=== PATIENT | male | born 1950 | race Native Hawaiian/Other Pacific Islander ===

== ENCOUNTER 2024-11-05 19:59 | Emergency (ER) | payer MEDICARE, MEDICAID, SELFPAY ==
[2024-11-05 20:00] VITALS: BMI 25.0
[2024-11-05 20:23] VITALS: BP 130/60; PULSE 92; RESP 16; TEMP 37.2; O2SAT 95
--- NOTE | 2024-11-05 20:29 | XR_ITS ---
Examination: CT abdomen and pelvis without contrast. Coronal 3-D reconstructions. Sagittal 2-D reconstructions. Date and time of exam:November 05, 20242050 hours Comparison April 02, 2024 INDICATIONS: Onset of pelvic and left hip pain today, history kidney stones CTDI: vol (mGy): 6.15 DLP: (mGycm): 304 Technique: Axial images of the abdomen have been obtained, 3 mm slice thickness Intravenous contrast material has not been administered. Low dose protocols were performed. One or more of the following dose reduction techniques were used; automated exposure control, adjustment of the mA and/or KV according to patient size, use of iterative reconstruction technique. Findings: No focal liver or splenic lesions Absent gallbladder No pancreatic mass Tiny 1 mm right renal calculi Minimal nodular thickening left adrenal gland Lower pole left renal calculi, the largest 8 mm no hydronephrosis or ureteral calculi Aorta normal size No pericecal inflammatory change No bowel obstruction No diverticulitis Transverse posterior dimension 5.3 cm Contracted urinary bladder Fat-containing left inguinal hernia IMPRESSION: Nonobstructing bilateral renal calculi No CT findings of appendicitis bowel obstruction or diverticulitis
--- NOTE | 2024-11-05 20:29 | XR_ITS ---
Examination: CT pelvis without intravenous contrast. 2-D sagittal and coronal reconstructions. Date and time of exam:November 05, 2024 at 2053 hours INDICATIONS: Onset pelvic and left hip pain today CTDI: vol (mGy) :5.30 DLP: (mGycm) : 167 Technique: Multiple 3 mm axial sections of the pelvis have been obtained with the 64 slice high resolution scanner. 2-D sagittal and coronal reconstructions. Low dose protocols were performed. One or more of the following dose reduction techniques were used; automated exposure control, adjustment of the mA and/or KV according to patient size, use of iterative reconstruction technique. Findings: Partial visualization left renal calculi No ureteral calculi Contractured urinary bladder Transverse posterior dimension 4.8 cm Iliac bones acetabular regions anterior rami intact No hip fractures Moderate narrowing hip joints IMPRESSION: No hip or pelvic fracture Moderate bilateral hip osteoarthritis
[2024-11-05 21:13] LABS: Basophils # (Auto) 0.1 Thou/mm3 (0.0-0.2); Basophils % (Auto) 0 % (0-2.5); Eosinophils # (Auto) 0.1 Thou/mm3 (0.0-0.5); Eosinophils % (Auto) 1 % (0-10); Hematocrit 37.9 % (41.0-53.0); Hemoglobin 13.2 g/dL (13.5-16.0); Immature Granulocytes % (Auto) 0 % (0-0); Immature Granulocytes Auto 0.04 Thou/mm3 (0.00-0.00); Lymphocytes # (Auto) 1.3 Thou/mm3 (1.0-4.8); Lymphocytes % (Auto) 11 % (10-50); Mean Corpuscular HGB Conc 34.8 g/dl (31.0-37.0); Mean Corpuscular Hemoglobin 31.6 pg (25.0-35.0); Mean Corpuscular Volume 91 fL (80-100); Monocytes % (Auto) 8 % (0-12); Neutrophils % (Auto) 80 % (37-80); Nucleated Red Blood Cell % 0 /100 WBC (0); Platelet Count 210 Thou/mm3 (140-440); RDW Standard Deviation 43.7 fL (35.1-43.9); Red Blood Count 4.18 Miln/mm3 (4.50-5.90); White Blood Count 12.5 Thou/mm3 (3.8-10.6)
[2024-11-05 21:30] LABS: Alanine Aminotransferase 16 U/L (10-49); Albumin, Serum 4.6 gm/dL (3.4-4.8); Albumin/Globulin Ratio 1.7 (1.2-2.2); Alkaline Phosphatase 50 U/L (46-116); Anion Gap 7 (7-16); Aspartate Amino Transferase 19 U/L (0-34); BUN/Creatinine Ratio 19 Ratio (12-20); Bilirubin,Total 0.6 mg/dL (0.3-1.2); Blood Urea Nitrogen 15 mg/dL (9-23); Calcium 9.1 mg/dL (8.3-10.6); Calcium (Corrected) 9.1 mg/dL (8.5-10.1); Carbon Dioxide 26.2 mMol/L (20.0-31.0); Chloride 102 mMol/L (98-107); Creatinine (Component) 0.8 mg/dL (0.6-1.3); Estimated Creatinine Clearance 53.8 mL/min (>60); Globulin 2.7 gm/dL (2.3-3.5); Glucose 144 mg/dL (74-106); Osmolality,Calculated 273 (275-295); Potassium 3.8 mMol/L (3.4-5.1); Sodium 135 mMol/L (136-145); Total Protein 7.3 gm/dL (5.7-8.2); eGFR > 60 See Note
[2024-11-05 21:50] LABS: Collection Type, Urine Clean Catch; Squamous Epithelial Cell,Urine 0 /hpf (0-5)
[2024-11-05 21:53] LABS: Bilirubin,Urine Negative (Negative); Blood,Urine 1+ (Negative); Clarity,Urine Clear (Clear/Hazy); Color,Urine Yellow (Lt Yel-Yel); Glucose, Urine Trace (Negative); Ketones,Urine Negative (Negative); Leukocyte Esterase,Urine Negative (Negative); Nitrite,Urine Negative (Negative); Protein,Urine Negative (Neg - Trace); RBC,Urine 4 /hpf (0-3); Specific Gravity,Urine 1.023 (1.001-1.035); Urobilinogen,Urine Negative mg/dL (0.0-1.0); WBC,Urine 1 /hpf (0-5)
[2024-11-05] MEDS: DIAZEPAM 5 MG TABLET PO (21:57)
[2024-11-05] MEDS: MORPHINE SULF INJ 10 MG/ML VIAL 5 MG IM (23:21)
--- NOTE | 2024-11-06 00:21 | PD.EDADULT ---
ED General RME/HPI General Chief complaint: Back Pain/Injury Stated complaint: LEFT SIDE BACK PAIN Time Seen by Provider: 11/05/24 20:08 Arrival date/time: 11/05/24 19:59 74-year-old male with a history of renal calculi presents to the ED with a complaint of left flank pain as well as left hip pain radiating to his thigh. He denies any abdominal pain extending down into his scrotum. The pain of his left hip is worsened with sitting and is more comfortable standing. He denies any recent injury, lifting, or a fall. He denies any loss of bladder or bowel control. Mode of arrival: ambulatory Limitations: no limitations Related Data Home Medications ?Medication ?Instructions ?Recorded ?Confirmed alprazolam 2 mg tablet (Xanax) 1 mg PO BID #0 tabs 06/05/14 lisinopril 10 mg tablet (Prinivil) 10 mg PO QDAY #0 tabs 06/05/14 tamsulosin 0.4 mg capsule (Flomax) 0.4 mg PO QDAY ##0 06/05/14 methimazole 5 mg tablet (Tapazole) 5 mg PO BID #0 tabs 12/31/15 ranitidine HCl 150 mg tablet 150 mg PO BID #0 tabs 12/31/15 (Zantac) Amitriptyline Hcl * (ELAVIL *) 25 mg PO HS #0 tabs 06/14/17 Aspirin Ec * (ECOTRIN *) 81 mg PO QDAY ##0 06/14/17 acetaminophen 500 mg tablet 500 mg PO PRN PRN PAIN ##0 06/14/17 cilostazol 50 mg tablet 50 mg PO BID #0 tabs 06/14/17 cyanocobalamin (vitamin B-12) 1,000 mcg PO QDAY #0 tabs 06/14/17 1,000 mcg tablet (Vitamin B-12) docusate sodium 100 mg capsule 100 mg PO TID ##0 06/14/17 (Doc-Q-Lace) metformin 500 mg tablet 500 mg PO QDAY #0 tabs 06/14/17 (Glucophage) paroxetine HCl 20 mg tablet (Paxil) 20 mg PO QAM #0 tabs 06/14/17 nitroglycerin 0.4 mg sublingual 0.4 mg SL PRN PRN CHEST TIGHTNESS 06/21/17 tablet (Nitrostat) #0 tabs Previous Rx's ?Medication ?Instructions ?Recorded Hydrocodone/Acetaminophen * (NORCO 1 tab PO Q6H PRN PAIN #30 tabs 06/22/17 5/325 *) cephalexin 500 mg capsule (Keflex) 500 mg PO QID #40 caps 12/25/19 hydrocodone bitartrate 10 mg 10 mg PO Q12H #10 ea 12/25/19 capsule, oral only, extended rel 12 hr lidocaine 5 % topical patch 1 patch topical Q24H #6 ea 10/16/22 lidocaine 5 % topical patch 1 patch topical QDAY #6 ea 10/16/22 methocarbamol 500 mg tablet 500 mg PO Q6H PRN muscle pain #20 10/16/22 tabs methocarbamol 500 mg tablet 500 mg PO Q6H PRN muscle pain #20 10/16/22 tabs tramadol 50 mg tablet 50 mg PO Q6H PRN pain #15 tabs 10/16/22 ibuprofen 600 mg tablet 600 mg PO Q8H PRN pain #14 tabs 04/02/24 diazepam 5 mg tablet 5 mg PO BID PRN muscle spasm #6 11/06/24 tabs diazepam 5 mg tablet (Valium) 5 mg PO BID PRN muscle spasm #6 11/06/24 tabs diazepam 5 mg tablet (Valium) 5 mg PO BID PRN muscle spasm #6 11/06/24 tabs oxycodone 5 mg tablet 5 mg PO Q8H PRN pain #10 tabs 11/06/24 oxycodone 5 mg tablet 5 mg PO Q8H PRN pain #10 tabs 11/06/24 oxycodone 5 mg tablet 5 mg PO Q8H PRN pain #10 tabs 11/06/24 cyclobenzaprine 5 mg tablet 5 mg PO TID PRN muscle spasm #30 11/07/24 tabs tramadol 50 mg tablet 50 mg PO BID PRN pain #6 tabs 11/07/24 dexamethasone 6 mg tablet 6 mg PO QDAY #7 tabs 11/08/24 meloxicam 7.5 mg tablet 7.5 mg PO BID #14 tabs 11/08/24 tamsulosin 0.4 mg capsule (Flomax) 0.4 mg PO QDAY #20 caps 11/08/24 Allergies Allergy/AdvReac Type Severity Reaction Status Date / Time acetaminophen Allergy Unknown Verified 11/08/24 11:47 propoxyphene Allergy Unknown Verified 11/08/24 11:47 Review of Systems Review of Systems Systems Reviewed: All systems reviewed, normal except as documented Past Medical History Past Medical History CARDIAC: Positive Hypertension; Negative Congestive Heart Failure RESPIRATORY: Negative Chronic Obstructive Pulmonary Disease (COPD) GENITOURINARY: Negative Renal Disease ENDOCRINE: Positive Hypothyroidism; Negative Diabetes Mellitus Type 1 or Diabetes Mellitus Type 2 PSYCHO/SOCIAL: Positive Anxiety Social History SMOKING STATUS: Never smoker ED Exam Narrative Physical exam: 74-year-old male, mild to moderate acute distress, unable to sit on the exam table however sits on the chair with his right buttocks only, extending his left leg. He has no tenderness to the cervical thoracic or lumbar spine. No CVA tenderness. No abdominal tenderness. He has tenderness to the left lateral hip area extending down into the thigh. He has positive straight leg raise on the left. DTRs are intact. General Limitations: Present no limitations Course Course Course Narrative: Patient was given morphine 5 mg IM as well as Valium 5 mg p.o. Vital signs blood pressure 130/60, pulse 92, respirations 16 nonlabored, temp 99.0, O2 sat 95% on room air. CBC reveals an elevated white count of 12.5, minimally low H&H of 13.2/37.9, normal platelets. CMP reveals minimally low sodium of 135, normal potassium, chloride, CO2, gap, BUN and creatinine. Glucose is elevated at 144. Calcium is normal as well as LFTs. Urinalysis reveals 1+ blood, negative nitrites, negative leukocyte esterase, 4 RBCs, 1 WBC and no bacteria. CT of the abdomen pelvis without contrast reveals: Nonobstructing bilateral renal calculi. No CT findings of appendicitis bowel obstruction or diverticulitis. CT of the left hip without contrast reveals: No hip or pelvic fracture. Moderate bilateral hip osteoarthritis. Patient was discharged home in stable and improved condition. He was encouraged to return to the ED for any new or worsening symptoms. Quality Measures none Orders Category Date Time Status CT abdomen pelvis wo con Stat Exams 11/05/24 20:[address] hip LT wo con Stat Exams 11/05/24 20:29 Completed CBC Stat Lab 11/05/24 20:51 Completed CMP [Comprehensive Metabolic Panel] Stat Lab 11/05/24 20:51 Completed Urinalysis Stat Lab 11/05/24 21:34 Completed Diazepam [Valium] Med 11/05/24 20:34 Discontinued 5 mg PO X1 ONE Morphine Inj Med 11/05/24 20:34 Discontinued 5 mg IM X1 ONE Vital Signs Vital signs: Vital Signs Temperature 99.0 F 11/05/24 20:23 Pulse Rate 92 11/05/24 20:23 Respiratory Rate 16 11/05/24 20:23 Blood Pressure 130/60 11/05/24 20:23 Pulse Oximetry (%) 95 11/05/24 20:23 Oxygen Delivery Method Room Air 11/05/24 20:23 Discharge Plan Plan Patient Disposition: HOME (Self Care) Discharge Disposition comment: Stable and improved Prescriptions/Referrals Prescriptions/Med Rec: New oxycodone 5 mg tablet 5 mg PO Q8H MDD 15 mg/day PRN (Reason: pain) Qty: 10 0RF diazepam 5 mg tablet 5 mg PO BID PRN (Reason: muscle spasm) Qty: 6 0RF oxycodone 5 mg tablet 5 mg PO Q8H MDD 15mg/day PRN (Reason: pain) Qty: 10 0RF diazepam [Valium] 5 mg tablet 5 mg PO BID PRN (Reason: muscle spasm) Qty: 6 0RF oxycodone 5 mg tablet 5 mg PO Q8H MDD 15mg/day PRN (Reason: pain) Qty: 10 0RF diazepam [Valium] 5 mg tablet 5 mg PO BID PRN (Reason: muscle spasm) Qty: 6 0RF tramadol 50 mg tablet 50 mg PO BID PRN (Reason: pain) Qty: 6 0RF cyclobenzaprine 5 mg tablet 5 mg PO TID PRN (Reason: muscle spasm) Qty: 30 0RF No Action tamsulosin [Flomax] 0.4 MG capsule,extended release 24hr 0.4 mg PO QDAY Qty: 0 lisinopril [Prinivil] 10 MG tablet 10 mg PO QDAY Qty: 0 alprazolam [Xanax] 2 MG tablet 1 mg PO BID Qty: 0 Patient Comments: TAKE 1/2 - 1 TAB methimazole [Tapazole] 5 MG tablet 5 mg PO BID Qty: 0 ranitidine HCl [Zantac] 150 MG tablet 150 mg PO BID Qty: 0 metformin [Glucophage] 500 MG tablet 500 mg PO QDAY Qty: 0 Amitriptyline Hcl * (ELAVIL *) 25 MG tablet 25 mg PO HS Qty: 0 Aspirin Ec * (ECOTRIN *) 81 MG TABLET.DR 81 mg PO QDAY Qty: 0 cilostazol 50 MG tablet 50 mg PO BID Qty: 0 cyanocobalamin (vitamin B-12) [Vitamin B-12] 1,000 MCG tablet 1,000 mcg PO QDAY Qty: 0 acetaminophen 500 MG tablet 500 mg PO PRN PRN (Reason: PAIN) Qty: 0 paroxetine HCl [Paxil] 20 MG tablet 20 mg PO QAM Qty: 0 docusate sodium [Doc-Q-Lace] 100 MG capsule 100 mg PO TID Qty: 0 nitroglycerin [Nitrostat] 0.4 MG tablet, sublingual 0.4 mg SL PRN PRN (Reason: CHEST TIGHTNESS) Qty: 0 Hydrocodone/Acetaminophen * (NORCO 5/325 *) 1 TAB tablet 1 tab PO Q6H PRN (Reason: PAIN) Qty: 30 0RF cephalexin [Keflex] 500 mg capsule 500 mg PO QID Qty: 40 0RF hydrocodone bitartrate 10 mg capsule, oral only, ER 12hr 10 mg PO Q12H MDD 2 Qty: 10 0RF tamsulosin [Flomax] 0.4 mg capsule 0.4 mg PO QDAY Qty: 20 0RF meloxicam 7.5 mg tablet 7.5 mg PO BID Qty: 14 0RF dexamethasone 6 mg tablet 6 mg PO QDAY Qty: 7 0RF methocarbamol 500 mg tablet 500 mg PO Q6H PRN (Reason: muscle pain) Qty: 20 0RF lidocaine 5 % adhesive patch,medicated 1 patch topical QDAY Qty: 6 0RF Rx Instructions: leave on most painful area for up to 12 hrs tramadol 50 mg tablet 50 mg PO Q6H PRN (Reason: pain) Qty: 15 0RF methocarbamol 500 mg tablet 500 mg PO Q6H PRN (Reason: muscle pain) Qty: 20 0RF lidocaine 5 % adhesive patch,medicated 1 patch topical Q24H Qty: 6 0RF Rx Instructions: leave on most painful area for up to 12 hrs ibuprofen 600 mg tablet 600 mg PO Q8H PRN (Reason: pain) Qty: 14 0RF Referrals: No Primary/Family,Physician [Primary Care Provider] - In 1 week Problem List Clinical Impression: Renal colic, Sciatica Patient/Caregiver Discharge Instructions Education Materials: ED Sciatica, ED Kidney Stone w/ Colic Additional Instructions: Follow-up with your primary care physician in 24 to 48 hours. You would likely benefit from physical therapy for your hip. Return to the ED for any new or worsening symptoms. Print Language: Slovak Stand Alone Forms: Marilee Award Info., Patient Portal Info Letter PA/RIVETER Supervising Physician PA/RIVETER Supervising Physician: Dr Pennington MDM Narrative MDM hospital course (for use when minimal MDM required): 74-year-old male with a history of renal calculi presents to the ED with a complaint of left flank pain as well as left hip pain radiating to his thigh. He denies any abdominal pain extending down into his scrotum. The pain of his left hip is worsened with sitting and is more comfortable standing. He denies any recent injury, lifting, or a fall. He denies any loss of bladder or bowel control. 74-year-old male, mild to moderate acute distress, unable to sit on the exam table however sits on the chair with his right buttocks only, extending his left leg. He has no tenderness to the cervical thoracic or lumbar spine. No CVA tenderness. No abdominal tenderness. He has tenderness to the left lateral hip area extending down into the thigh. He has positive straight leg raise on the left. DTRs are intact. Patient was given morphine 5 mg IM as well as Valium 5 mg p.o. Vital signs blood pressure 130/60, pulse 92, respirations 16 nonlabored, temp 99.0, O2 sat 95% on room air. CBC reveals an elevated white count of 12.5, minimally low H&H of 13.2/37.9, normal platelets. CMP reveals minimally low sodium of 135, normal potassium, chloride, CO2, gap, BUN and creatinine. Glucose is elevated at 144. Calcium is normal as well as LFTs. Urinalysis reveals 1+ blood, negative nitrites, negative leukocyte esterase, 4 RBCs, 1 WBC and no bacteria. CT of the abdomen pelvis without contrast reveals: Nonobstructing bilateral renal calculi. No CT findings of appendicitis bowel obstruction or diverticulitis. CT of the left hip without contrast reveals: No hip or pelvic fracture. Moderate bilateral hip osteoarthritis. Patient was discharged home in stable and improved condition. He was encouraged to return to the ED for any new or worsening symptoms. Clinical Information Provided by: patient Medical Records reviewed [facility] Meds/Rx considered, not ordered None Labs/Rad/Tests considered, not ordered None Chronic Illness/Social Conditions which may negatively complicate care or outcome(s)-explain: other (Hypertension, renal calculi with colic) EKG EKG not done Labs Labs: Interpreted by or Lab(s) Interpretation(s): As noted above Imaging Imaging interpretation: none or see narrative above Imaging Interpretation(s): As noted above Medication Administration(s) Medication Administration History Discontinued Medications Diazepam (Diazepam 5 Mg Tablet) 5 mg PO X1 ONE Stop: 11/05/24 20:35 Last Admin: 11/05/24 21:57 Dose: 5 mg Documented By: MIHAI Morphine Sulfate (Morphine Sulf Inj 10 Mg/Ml Vial) 5 mg IM X1 ONE Stop: 11/05/24 20:35 Last Admin: 11/05/24 23:21 Dose: 5 mg Documented By: MIHAI As noted above Diagnosis Differential Diagnosis ED Complaint MDM: Renal calculi, UTI, pyelonephritis, sciatica, hip osteoarthritis
== END 2024-11-06 00:47 | disposition home or self-care (01) ==
PROVIDERS: Physician Assistant; Emergency Provider Emergency Medicine
DX: N20.0 Calculus of kidney (principal); M16.0 Bilateral primary osteoarthritis of hip
CPT/HCPCS: 36415; 73700; 74176; 80053; 81001; 85025; 96372; 99284; J2270; A9270

== ENCOUNTER 2024-11-08 11:43 | Emergency (ER) | payer MEDICARE, MEDICAID, SELFPAY ==
[2024-11-08 11:44] VITALS: BMI 25.0
[2024-11-08 12:23] VITALS: BP 154/61; PULSE 75; RESP 18; TEMP 37.3; O2SAT 97
--- NOTE | 2024-11-08 12:33 | PD.EDBACK ---
ED Back Injury Pain RME/HPI General Chief Complaint: Back Pain/Injury Stated Complaint: BACK PAIN SINCE YEST, SEEN AND MEDS NOT WORKING Time Seen by Provider: 11/08/24 12:22 Source: patient Arrival date/time: 11/08/24 11:43 74-year-old male with no known medical history presents to the emergency room with a chief complaint of pain and tenderness to his left flank x 2 days. Mode of arrival: ambulatory Limitations: no limitations Related Data Home Medications ?Medication ?Instructions ?Recorded ?Confirmed alprazolam 2 mg tablet (Xanax) 1 mg PO BID #0 tabs 06/05/14 lisinopril 10 mg tablet (Prinivil) 10 mg PO QDAY #0 tabs 06/05/14 tamsulosin 0.4 mg capsule (Flomax) 0.4 mg PO QDAY ##0 06/05/14 methimazole 5 mg tablet (Tapazole) 5 mg PO BID #0 tabs 12/31/15 ranitidine HCl 150 mg tablet 150 mg PO BID #0 tabs 12/31/15 (Zantac) Amitriptyline Hcl * (ELAVIL *) 25 mg PO HS #0 tabs 06/14/17 Aspirin Ec * (ECOTRIN *) 81 mg PO QDAY ##0 06/14/17 acetaminophen 500 mg tablet 500 mg PO PRN PRN PAIN ##0 06/14/17 cilostazol 50 mg tablet 50 mg PO BID #0 tabs 06/14/17 cyanocobalamin (vitamin B-12) 1,000 mcg PO QDAY #0 tabs 06/14/17 1,000 mcg tablet (Vitamin B-12) docusate sodium 100 mg capsule 100 mg PO TID ##0 06/14/17 (Doc-Q-Lace) metformin 500 mg tablet 500 mg PO QDAY #0 tabs 06/14/17 (Glucophage) paroxetine HCl 20 mg tablet (Paxil) 20 mg PO QAM #0 tabs 06/14/17 nitroglycerin 0.4 mg sublingual 0.4 mg SL PRN PRN CHEST TIGHTNESS 06/21/17 tablet (Nitrostat) #0 tabs Previous Rx's ?Medication ?Instructions ?Recorded Hydrocodone/Acetaminophen * (NORCO 1 tab PO Q6H PRN PAIN #30 tabs 06/22/17 5/325 *) cephalexin 500 mg capsule (Keflex) 500 mg PO QID #40 caps 12/25/19 hydrocodone bitartrate 10 mg 10 mg PO Q12H #10 ea 12/25/19 capsule, oral only, extended rel 12 hr lidocaine 5 % topical patch 1 patch topical Q24H #6 ea 10/16/22 lidocaine 5 % topical patch 1 patch topical QDAY #6 ea 10/16/22 methocarbamol 500 mg tablet 500 mg PO Q6H PRN muscle pain #20 10/16/22 tabs methocarbamol 500 mg tablet 500 mg PO Q6H PRN muscle pain #20 10/16/22 tabs tramadol 50 mg tablet 50 mg PO Q6H PRN pain #15 tabs 10/16/22 ibuprofen 600 mg tablet 600 mg PO Q8H PRN pain #14 tabs 04/02/24 diazepam 5 mg tablet 5 mg PO BID PRN muscle spasm #6 11/06/24 tabs diazepam 5 mg tablet (Valium) 5 mg PO BID PRN muscle spasm #6 11/06/24 tabs diazepam 5 mg tablet (Valium) 5 mg PO BID PRN muscle spasm #6 11/06/24 tabs oxycodone 5 mg tablet 5 mg PO Q8H PRN pain #10 tabs 11/06/24 oxycodone 5 mg tablet 5 mg PO Q8H PRN pain #10 tabs 11/06/24 oxycodone 5 mg tablet 5 mg PO Q8H PRN pain #10 tabs 11/06/24 cyclobenzaprine 5 mg tablet 5 mg PO TID PRN muscle spasm #30 11/07/24 tabs tramadol 50 mg tablet 50 mg PO BID PRN pain #6 tabs 11/07/24 meloxicam 7.5 mg tablet 7.5 mg PO BID #14 tabs 11/08/24 tamsulosin 0.4 mg capsule (Flomax) 0.4 mg PO QDAY #20 caps 11/08/24 Allergies Allergy/AdvReac Type Severity Reaction Status Date / Time acetaminophen Allergy Unknown Verified 11/08/24 11:47 propoxyphene Allergy Unknown Verified 11/08/24 11:47 ED Exam General Limitations: Present no limitations Course Orders Category Date Time Status Ketorolac Inj [Toradol Inj] Med 11/08/24 12:29 Discontinued 30 mg IM X1 ONE Vital Signs Vital signs: Vital Signs Temperature 99.2 F 11/08/24 12:23 Pulse Rate 75 11/08/24 12:23 Respiratory Rate 18 11/08/24 12:23 Blood Pressure 154/61 H 11/08/24 12:23 Pulse Oximetry (%) 97 11/08/24 12:23 Oxygen Delivery Method Room Air 11/08/24 12:23 Back Pain / Injury Medications / Prescriptions Medication administrations:: Medication Administration History Discontinued Medications Ketorolac Tromethamine (Ketorolac Inj 60 Mg/2 Ml Vial) 30 mg IM X1 ONE Stop: 11/08/24 12:30 Discharge Plan Plan Patient Disposition: HOME (Self Care) Discharge Disposition comment: Stable Prescriptions/Referrals Prescriptions/Med Rec: New tamsulosin [Flomax] 0.4 mg capsule 0.4 mg PO QDAY Qty: 20 0RF meloxicam 7.5 mg tablet 7.5 mg PO BID Qty: 14 0RF No Action tamsulosin [Flomax] 0.4 MG capsule,extended release 24hr 0.4 mg PO QDAY Qty: 0 lisinopril [Prinivil] 10 MG tablet 10 mg PO QDAY Qty: 0 alprazolam [Xanax] 2 MG tablet 1 mg PO BID Qty: 0 Patient Comments: TAKE 1/2 - 1 TAB methimazole [Tapazole] 5 MG tablet 5 mg PO BID Qty: 0 ranitidine HCl [Zantac] 150 MG tablet 150 mg PO BID Qty: 0 metformin [Glucophage] 500 MG tablet 500 mg PO QDAY Qty: 0 Amitriptyline Hcl * (ELAVIL *) 25 MG tablet 25 mg PO HS Qty: 0 Aspirin Ec * (ECOTRIN *) 81 MG TABLET.DR 81 mg PO QDAY Qty: 0 cilostazol 50 MG tablet 50 mg PO BID Qty: 0 cyanocobalamin (vitamin B-12) [Vitamin B-12] 1,000 MCG tablet 1,000 mcg PO QDAY Qty: 0 acetaminophen 500 MG tablet 500 mg PO PRN PRN (Reason: PAIN) Qty: 0 paroxetine HCl [Paxil] 20 MG tablet 20 mg PO QAM Qty: 0 docusate sodium [Doc-Q-Lace] 100 MG capsule 100 mg PO TID Qty: 0 nitroglycerin [Nitrostat] 0.4 MG tablet, sublingual 0.4 mg SL PRN PRN (Reason: CHEST TIGHTNESS) Qty: 0 Hydrocodone/Acetaminophen * (NORCO 5/325 *) 1 TAB tablet 1 tab PO Q6H PRN (Reason: PAIN) Qty: 30 0RF cephalexin [Keflex] 500 mg capsule 500 mg PO QID Qty: 40 0RF hydrocodone bitartrate 10 mg capsule, oral only, ER 12hr 10 mg PO Q12H MDD 2 Qty: 10 0RF methocarbamol 500 mg tablet 500 mg PO Q6H PRN (Reason: muscle pain) Qty: 20 0RF lidocaine 5 % adhesive patch,medicated 1 patch topical QDAY Qty: 6 0RF Rx Instructions: leave on most painful area for up to 12 hrs tramadol 50 mg tablet 50 mg PO Q6H PRN (Reason: pain) Qty: 15 0RF methocarbamol 500 mg tablet 500 mg PO Q6H PRN (Reason: muscle pain) Qty: 20 0RF lidocaine 5 % adhesive patch,medicated 1 patch topical Q24H Qty: 6 0RF Rx Instructions: leave on most painful area for up to 12 hrs ibuprofen 600 mg tablet 600 mg PO Q8H PRN (Reason: pain) Qty: 14 0RF oxycodone 5 mg tablet 5 mg PO Q8H MDD 15 mg/day PRN (Reason: pain) Qty: 10 0RF diazepam 5 mg tablet 5 mg PO BID PRN (Reason: muscle spasm) Qty: 6 0RF oxycodone 5 mg tablet 5 mg PO Q8H MDD 15mg/day PRN (Reason: pain) Qty: 10 0RF diazepam [Valium] 5 mg tablet 5 mg PO BID PRN (Reason: muscle spasm) Qty: 6 0RF oxycodone 5 mg tablet 5 mg PO Q8H MDD 15mg/day PRN (Reason: pain) Qty: 10 0RF diazepam [Valium] 5 mg tablet 5 mg PO BID PRN (Reason: muscle spasm) Qty: 6 0RF tramadol 50 mg tablet 50 mg PO BID PRN (Reason: pain) Qty: 6 0RF cyclobenzaprine 5 mg tablet 5 mg PO TID PRN (Reason: muscle spasm) Qty: 30 0RF Problem List Clinical Impression: Renal colic Patient/Caregiver Discharge Instructions Print Language: Croatian Stand Alone Forms: Marilee Award Info., Patient Portal Info Letter
[2024-11-08] MEDS: KETOROLAC INJ 60 MG/2 ML VIAL 30 MG IM (12:45)
--- NOTE | 2024-11-08 12:48 | PD.EDRME ---
Rapid Medical Screening Exam [facility] Arrival date/time: 11/08/24 11:43 74-year-old male with no known medical history presents to the emergency room with a chief complaint of pain and tenderness to his left flank x 2 days. I have greeted and performed a focused initial assessment of this patient. A comprehensive ED assessment and evaluation of the patient, analysis of all test results, and completion of the medical decision making process will be conducted by additional ED providers. Chief Complaint: Back Pain/Injury Time Seen by Provider: 11/08/24 12:22 Vital signs: Vital Signs Temperature 99.2 F 11/08/24 12:23 Pulse Rate 75 11/08/24 12:23 Respiratory Rate 18 11/08/24 12:23 Blood Pressure 154/61 H 11/08/24 12:23 Pulse Oximetry (%) 97 11/08/24 12:23 Oxygen Delivery Method Room Air 11/08/24 12:23 Vital signs reviewed by provider: Yes
--- NOTE | 2024-11-08 12:55 | XR_ITS ---
Examination: CT lumbar spine, without contrast. 2-D sagittal reconstructions. 2-D coronal reconstructions. 3-D reconstructions. Date and time of exam:November 08, 2024 1327 hours INDICATIONS: New onset lower back pain beginning 2 days ago CTDI: vol (mGy):17.7 DLP: (mGycm):463 Technique: Multiple 1.25 mm axial sections of the lumbar spine without intravenous contrast have been obtained. 2-D sagittal and coronal reconstructions have been obtained. 3-D reconstructions have been obtained. Low dose protocols were performed. One or more of the following dose reduction techniques were used; automated exposure control, adjustment of the mA and/or KV according to patient size, use of iterative reconstruction technique. Findings: Prominent osteopenia Grade 1 anterolisthesis L4 on L5 No lumbar fracture Lumbar pedicles laminated transverse and posterior spinous processes intact L5-S1 3 mm central lumbar disc bulge L4-L5 5 mm central lumbar disc bulge More cephalad levels unremarkable IMPRESSION: No lumbar fracture L5-S1 3 mm central lumbar disc bulge L4-L5 5 mm central lumbar disc bulge
--- NOTE | 2024-11-08 12:56 | PD.EDBACK ---
ED Back Injury Pain RME/HPI General Chief Complaint: Back Pain/Injury Stated Complaint: BACK PAIN SINCE YEST, SEEN AND MEDS NOT WORKING Time Seen by Provider: 11/08/24 12:22 Arrival date/time: 11/08/24 11:43 RME / HPI RME / HPI Narrative: 74-year-old male patient came in for evaluation regarding low back pain. Onset of symptoms for the last 2 to 3 days as sudden onset of low back pain, pain described as dull ache, radiating to the left posterior thigh. Patient denies any urinary incontinence. Denies any bowel incontinence denies any saddle anesthesia. Patient is ambulatory. Pain is worse from sitting to standing. Denies any trauma or fall. No medication was taken prior to arrival. Related Data Home Medications ?Medication ?Instructions ?Recorded ?Confirmed alprazolam 2 mg tablet (Xanax) 1 mg PO BID #0 tabs 06/05/14 lisinopril 10 mg tablet (Prinivil) 10 mg PO QDAY #0 tabs 06/05/14 tamsulosin 0.4 mg capsule (Flomax) 0.4 mg PO QDAY ##0 06/05/14 methimazole 5 mg tablet (Tapazole) 5 mg PO BID #0 tabs 12/31/15 ranitidine HCl 150 mg tablet 150 mg PO BID #0 tabs 12/31/15 (Zantac) Amitriptyline Hcl * (ELAVIL *) 25 mg PO HS #0 tabs 06/14/17 Aspirin Ec * (ECOTRIN *) 81 mg PO QDAY ##0 06/14/17 acetaminophen 500 mg tablet 500 mg PO PRN PRN PAIN ##0 06/14/17 cilostazol 50 mg tablet 50 mg PO BID #0 tabs 06/14/17 cyanocobalamin (vitamin B-12) 1,000 mcg PO QDAY #0 tabs 06/14/17 1,000 mcg tablet (Vitamin B-12) docusate sodium 100 mg capsule 100 mg PO TID ##0 06/14/17 (Doc-Q-Lace) metformin 500 mg tablet 500 mg PO QDAY #0 tabs 06/14/17 (Glucophage) paroxetine HCl 20 mg tablet (Paxil) 20 mg PO QAM #0 tabs 06/14/17 nitroglycerin 0.4 mg sublingual 0.4 mg SL PRN PRN CHEST TIGHTNESS 06/21/17 tablet (Nitrostat) #0 tabs Previous Rx's ?Medication ?Instructions ?Recorded Hydrocodone/Acetaminophen * (NORCO 1 tab PO Q6H PRN PAIN #30 tabs 06/22/17 5/325 *) cephalexin 500 mg capsule (Keflex) 500 mg PO QID #40 caps 12/25/19 hydrocodone bitartrate 10 mg 10 mg PO Q12H #10 ea 12/25/19 capsule, oral only, extended rel 12 hr lidocaine 5 % topical patch 1 patch topical Q24H #6 ea 10/16/22 lidocaine 5 % topical patch 1 patch topical QDAY #6 ea 10/16/22 methocarbamol 500 mg tablet 500 mg PO Q6H PRN muscle pain #20 10/16/22 tabs methocarbamol 500 mg tablet 500 mg PO Q6H PRN muscle pain #20 10/16/22 tabs tramadol 50 mg tablet 50 mg PO Q6H PRN pain #15 tabs 10/16/22 ibuprofen 600 mg tablet 600 mg PO Q8H PRN pain #14 tabs 04/02/24 diazepam 5 mg tablet 5 mg PO BID PRN muscle spasm #6 11/06/24 tabs diazepam 5 mg tablet (Valium) 5 mg PO BID PRN muscle spasm #6 11/06/24 tabs diazepam 5 mg tablet (Valium) 5 mg PO BID PRN muscle spasm #6 11/06/24 tabs oxycodone 5 mg tablet 5 mg PO Q8H PRN pain #10 tabs 11/06/24 oxycodone 5 mg tablet 5 mg PO Q8H PRN pain #10 tabs 11/06/24 oxycodone 5 mg tablet 5 mg PO Q8H PRN pain #10 tabs 11/06/24 cyclobenzaprine 5 mg tablet 5 mg PO TID PRN muscle spasm #30 11/07/24 tabs tramadol 50 mg tablet 50 mg PO BID PRN pain #6 tabs 11/07/24 dexamethasone 6 mg tablet 6 mg PO QDAY #7 tabs 11/08/24 meloxicam 7.5 mg tablet 7.5 mg PO BID #14 tabs 11/08/24 tamsulosin 0.4 mg capsule (Flomax) 0.4 mg PO QDAY #20 caps 11/08/24 Allergies Allergy/AdvReac Type Severity Reaction Status Date / Time acetaminophen Allergy Unknown Verified 11/08/24 11:47 propoxyphene Allergy Unknown Verified 11/08/24 11:47 Review of Systems Review of Systems Narrative Review of Systems: Review of system reviewed and within normal limits except mentioned in HPI ED Exam Narrative Physical exam: VITAL SIGNS: Reviewed. GENERAL APPEARANCE: Alert and interactive, follows commands, no acute distress, HEAD AND FACE: Non-traumatic. ENT: PERRL, pink conjunctivitis, eyelid no trauma, Mucous membrane moist. NECK: Supple, nontender, no nuchal rigidity. CHEST: No tenderness, no crepitus, no paradoxical movement, no retractions. LUNGS: Clear, well ventilated, symmetric, no rales, no wheezing, no ronchi, no stridor, good breath sounds bilaterally. HEART: Regular rate, regular rhythm, no murmur, no gallops. ABDOMEN: Soft, positive bowel sounds, nondistended, no guarding, nontender, no rebound, no masses, RECTAL: Deferred. GENITAL: Deferred. NEUROLOGICAL: Gross motor function intact sensory function intact, Appropriate for age. MUSCULOSKELETAL: low back tenderness, full range of motion. Positive straight leg raising test on the left EXTREMITIES: Nontender, full range of motion. SKIN: Color pink, dry, no rash, no lacerations, no abrasions, no contusions. LYMPHATICS: Deferred. Course Quality Measures none Orders Category Date Time Status CT lumbar spine wo con Stat Exams 11/08/24 12:55 Completed Uric Acid Stat Lab 11/08/24 13:10 Completed Dexamethasone Inj [Decadron Inj] Med 11/08/24 12:55 Discontinued 10 mg IM X1 ONE Ketorolac Inj [Toradol Inj] Med 11/08/24 12:29 Discontinued 30 mg IM X1 ONE Vital Signs Vital signs: Vital Signs Temperature 99.2 F 11/08/24 12:23 Pulse Rate 75 11/08/24 12:23 Respiratory Rate 18 11/08/24 12:23 Blood Pressure 154/61 H 11/08/24 12:23 Pulse Oximetry (%) 97 11/08/24 12:23 Oxygen Delivery Method Room Air 11/08/24 12:23 Back Pain / Injury MDM Narrative MDM Narrative:: 74-year-old male patient came in for evaluation regarding low back pain. Onset of symptoms for the last 2 to 3 days as sudden onset of low back pain, pain described as dull ache, radiating to the left posterior thigh. Patient denies any urinary incontinence. Denies any bowel incontinence denies any saddle anesthesia. Patient is ambulatory. Pain is worse from sitting to standing. Denies any trauma or fall. No medication was taken prior to arrival. CT scan of the lumbar spine showed L4-L5 disc bulging and L5-S1 disc bulging. Uric acid is normal Patient was given Toradol with significant pulmonary pain patient is ambulatory Was advised to see PCP and for referral to physical therapy. Patient data External records reviewed:: None Clinical information provided by:: patient and family Social determinants that could affect healthcare access:: none Patient has the following chronic illnesses:: None How is presenting disease/condition affected by chronic disease/condition?: exacerbated by Evaluation data The following diagnostics were reviewed and interpreted by me:: lab results and radiology exam(s) Lab and/or radiology exams considered but not ordered:: None Interpretation Summary: See results in [facility] Medications / Prescriptions Medications or Prescriptions considered but not ordered:: None Medication administrations:: Medication Administration History Discontinued Medications Dexamethasone Sodium Phosphate (Dexamethasone Sod Phos Inj 10 Mg/Ml Vial) 10 mg IM X1 ONE Stop: 11/08/24 12:56 Last Admin: 11/08/24 14:09 Dose: 10 mg Documented By: Ketorolac Tromethamine (Ketorolac Inj 60 Mg/2 Ml Vial) 30 mg IM X1 ONE Stop: 11/08/24 12:30 Last Admin: 11/08/24 12:45 Dose: 30 mg Documented By: KAYDEN Decadron and Toradol Consultations Consultation(s) initiated? (list below): No Diagnosis Differential diagnosis back pain/injury: lumbar radiculopathy and sciatica Most likely diagnosis given after review of the tests above:: Sciatica, lumbar disc disease Admission Indicated Admission indicated?: not indicated Admission Request Was there a request for admission?: No Disposition Plan Disposition Plan: Discharge Discharge Attestation Discharge Attestation: The patient and all family members were given an opportunity to ask questions and understood the discharge instructions. Discharge instructions specifically effects, indications for sooner follow up or return to the emergency department, and the expected course of current diagnosis. Patient condition: Stable Discharge Plan Plan Patient Disposition: HOME (Self Care) Discharge Disposition comment: Stable Prescriptions/Referrals Prescriptions/Med Rec: New tamsulosin [Flomax] 0.4 mg capsule 0.4 mg PO QDAY Qty: 20 0RF meloxicam 7.5 mg tablet 7.5 mg PO BID Qty: 14 0RF dexamethasone 6 mg tablet 6 mg PO QDAY Qty: 7 0RF No Action tamsulosin [Flomax] 0.4 MG capsule,extended release 24hr 0.4 mg PO QDAY Qty: 0 lisinopril [Prinivil] 10 MG tablet 10 mg PO QDAY Qty: 0 alprazolam [Xanax] 2 MG tablet 1 mg PO BID Qty: 0 Patient Comments: TAKE 1/2 - 1 TAB methimazole [Tapazole] 5 MG tablet 5 mg PO BID Qty: 0 ranitidine HCl [Zantac] 150 MG tablet 150 mg PO BID Qty: 0 metformin [Glucophage] 500 MG tablet 500 mg PO QDAY Qty: 0 Amitriptyline Hcl * (ELAVIL *) 25 MG tablet 25 mg PO HS Qty: 0 Aspirin Ec * (ECOTRIN *) 81 MG TABLET.DR 81 mg PO QDAY Qty: 0 cilostazol 50 MG tablet 50 mg PO BID Qty: 0 cyanocobalamin (vitamin B-12) [Vitamin B-12] 1,000 MCG tablet 1,000 mcg PO QDAY Qty: 0 acetaminophen 500 MG tablet 500 mg PO PRN PRN (Reason: PAIN) Qty: 0 paroxetine HCl [Paxil] 20 MG tablet 20 mg PO QAM Qty: 0 docusate sodium [Doc-Q-Lace] 100 MG capsule 100 mg PO TID Qty: 0 nitroglycerin [Nitrostat] 0.4 MG tablet, sublingual 0.4 mg SL PRN PRN (Reason: CHEST TIGHTNESS) Qty: 0 Hydrocodone/Acetaminophen * (NORCO 5/325 *) 1 TAB tablet 1 tab PO Q6H PRN (Reason: PAIN) Qty: 30 0RF cephalexin [Keflex] 500 mg capsule 500 mg PO QID Qty: 40 0RF hydrocodone bitartrate 10 mg capsule, oral only, ER 12hr 10 mg PO Q12H MDD 2 Qty: 10 0RF methocarbamol 500 mg tablet 500 mg PO Q6H PRN (Reason: muscle pain) Qty: 20 0RF lidocaine 5 % adhesive patch,medicated 1 patch topical QDAY Qty: 6 0RF Rx Instructions: leave on most painful area for up to 12 hrs tramadol 50 mg tablet 50 mg PO Q6H PRN (Reason: pain) Qty: 15 0RF methocarbamol 500 mg tablet 500 mg PO Q6H PRN (Reason: muscle pain) Qty: 20 0RF lidocaine 5 % adhesive patch,medicated 1 patch topical Q24H Qty: 6 0RF Rx Instructions: leave on most painful area for up to 12 hrs ibuprofen 600 mg tablet 600 mg PO Q8H PRN (Reason: pain) Qty: 14 0RF oxycodone 5 mg tablet 5 mg PO Q8H MDD 15 mg/day PRN (Reason: pain) Qty: 10 0RF diazepam 5 mg tablet 5 mg PO BID PRN (Reason: muscle spasm) Qty: 6 0RF oxycodone 5 mg tablet 5 mg PO Q8H MDD 15mg/day PRN (Reason: pain) Qty: 10 0RF diazepam [Valium] 5 mg tablet 5 mg PO BID PRN (Reason: muscle spasm) Qty: 6 0RF oxycodone 5 mg tablet 5 mg PO Q8H MDD 15mg/day PRN (Reason: pain) Qty: 10 0RF diazepam [Valium] 5 mg tablet 5 mg PO BID PRN (Reason: muscle spasm) Qty: 6 0RF tramadol 50 mg tablet 50 mg PO BID PRN (Reason: pain) Qty: 6 0RF cyclobenzaprine 5 mg tablet 5 mg PO TID PRN (Reason: muscle spasm) Qty: 30 0RF Problem List Clinical Impression: Sciatica, Degenerative disc disease, lumbar Patient/Caregiver Discharge Instructions Discharge Activity: activity as tolerated Education Materials: Back Safety Bed Additional Instructions: Thank you for the opportunity for serving you today. You are stable for discharged . You are advised to: Follow-up with your PCP in 1 to 2 days Return to ED for worsening of symptoms Increase oral fluids Take medication as prescribed Continue taking your meloxicam, tramadol, and Flexeril As your PCP to refer you to physical therapy Print Language: Estonian SAMANTHA/GUADALUPE Supervising Physician UMANG Supervising Physician: MD Melo
[2024-11-08] MEDS: DEXAMETHASONE SOD PHOS INJ 10 MG/ML VIAL IM (14:09)
== END 2024-11-08 16:05 | disposition home or self-care (01) ==
PROVIDERS: Nurse Practitioner Family; Emergency Provider Emergency Medicine; PCP Nurse Practitioner
DX: M54.42 Lumbago with sciatica, left side (principal); M51.360 Other intervertebral disc degeneration, lumbar region with discogenic back pain only
CPT/HCPCS: 36415; 72131; 84550; 96372; 99284; J1100; J1885